=== PATIENT | female | born 1935 | race Two or more races ===

== ENCOUNTER 2017-10-13 07:06 | Day surgery (SDC) | payer MEDICARE, OTHER ==
--- NOTE | 2017-10-09 10:32 | Pre-Procedure Note/Attestation ---
Pre-Procedure Note/Attestation Complete Prior to Procedure Planned Procedure: right Procedure Narrative: 1. CATARACT EXTRACTION WITH PHACO AND PC IOL IMPLANTATION, RIGHT EYE. 2. LIMBAL RELAXING INCISION, RIGHT EYE. Indications for Procedure Pre-Operative Diagnosis: 1. 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 2.ASTIGMATISM , RIGHT EYE. Attestation I attest that I discussed the nature of the procedure; its benefits; risks and complications; and alternatives (and the risks and benefits of such alternatives ), prior to the procedure, with the patient (or the patient's legal patient admitting representative). I attest that, if there was a reasonable possibility of needing a blood transfusion, the patient (or the patient's legal patient admitting representative) was given the [place] Department [employer] standardized written summary, pursuant to the Zeeshan Liya Blood Safety Act ([place] Health and Safety Code # 1645, as amended). I attest that I re-evaluated the patient just prior to the surgery and that there has been no change in the patient's H&P, except as documented below: SHAW LEE Oct 09, 2017 10:32
[2017-10-13] VITALS (10 sets, daily range): BP systolic 126–155; BP diastolic 77–91
[~2017-10-13] VITALS: Ht 152.4 cm; Wt 79.8 kg
[~2017-10-13 07:06] MED LIST: acetaZOLAMIDE 125mg tab ORAL ONE
[2017-10-13] MEDS ORDERED: Vigamox Opth Soln 3ml ONE (07:12)
[2017-10-13] MEDS ORDERED: Phenylephrine 10% Opth Soln 5ml ONE (07:12)
[2017-10-13] MEDS ORDERED: Ketorolac Tromethamine Opth 5ml Soln ONE (07:12)
[2017-10-13] MEDS ORDERED: Tropicamide 1% Opth 15ml Soln ONE (07:13)
[2017-10-13] MEDS: Vigamox Opth Soln 3ml RIGHT EYE SCH ×3 (07:41→08:03)
[2017-10-13] MEDS: Phenylephrine 10% Opth Soln 5ml RIGHT EYE SCH ×3 (07:41→08:03)
[2017-10-13] MEDS: Tropicamide 1% Opth 15ml Soln RIGHT EYE SCH ×3 (07:41→08:03)
[2017-10-13] MEDS: Ketorolac Tromethamine Opth 5ml Soln RIGHT EYE SCH ×3 (07:41→08:03)
[2017-10-13] MEDS ORDERED: LR 1000ml ONE (08:00)
[2017-10-13] MEDS ORDERED: Sterile Water Irrig 1000ml IRRIG ONE (08:00)
[2017-10-13] MEDS ORDERED: Sodium Chloride 10ml vial INJ ONE ×2 (08:00)
[2017-10-13] MEDS ORDERED: LEVOTHYROXINE50 MCG ORAL (08:00)
[2017-10-13] MEDS ORDERED: Propofol 200mg/20ml IV ONE (08:00)
[2017-10-13] MEDS ORDERED: Midazolam 2mg/2ml Inj ONE (08:00)
[2017-10-13] MEDS ORDERED: fentaNYL 100 mcg/2 mL IV ONE (08:00)
[2017-10-13] MEDS ORDERED: DIOVAN80 MG ORAL (08:00)
[2017-10-13] MEDS ORDERED: AMLODIPINE BESYL5 MG ORAL (08:00)
[2017-10-13] MEDS ORDERED: NS Irrig 1000ml ONE (08:00)
[2017-10-13] MEDS ORDERED: Akten 3.5% 1ml Btl ONE (08:36)
[2017-10-13] MEDS ORDERED: Dexamethasone 4mg/ml vial ONE (08:37)
[2017-10-13] MEDS ORDERED: Lidocaine 1% MPF 10mg/ml 5ml ONE (08:37)
[2017-10-13] MEDS ORDERED: BSS 500ml btl ONE (08:37)
[2017-10-13] MEDS ORDERED: EPINEPHrine 1mg/1ml Amp ONE (08:37)
[2017-10-13] MEDS ORDERED: Sodium Hyaluronate 10 mg/ml 0.85ml ONE (08:38)
[2017-10-13] MEDS ORDERED: Povidone-Iodine 5% opth solution ONE (08:38)
[2017-10-13] MEDS ORDERED: BSS 15ml BTL ONE (08:38)
[2017-10-13] MEDS ORDERED: LR 1000ml 1,000 ML IVLG SCH (09:05)
--- NOTE | 2017-10-13 09:05 | Anethesia Preoperative Eval ---
Anesthesia Pre-op PMH/ROS General Date of Evaluation: Oct 13, 2017 Time of Evaluation: 08:25 Anesthesiologist: Natali ASA Score: ASA 3 Mallampati Score Class I : Soft palate, uvula, fauces, pillars visible Class II: Soft palate, uvula, fauces visible Class III: Soft palate, base of uvula visible Class IV: Only hard plate visible Mallampati Classification: Class II Surgeon: Kayla Diagnosis: R eye cataract Surgical Procedure: R eye cataract extraction Anesthesia History: none Family History: no anesthesia problems Allergies: Coded Allergies: LIDOCAINE (Verified Allergy, Unknown, 10/09/17) Past Medical History Cardiovascular: Reports: HTN, Denies: CAD, SC, valve dz, arrhythmia, other Pulmonary: Denies: asthma, COPD, GREGORIA, other Gastrointestinal/Genitourinary: Reports: GERD, Denies: CRI, ESRD, other Neurologic/Psychiatric: Reports: depression/anxiety, Denies: dementia, CVA, TIA, other Endocrine: Reports: hypothyroidism HEENT: Reports: cataract (L), cataract (R) - s/p Sx Hematology/Immune: Reports: anemia - mild, Denies: DVT, bleeding disorder, other Musculoskeletal/Integumentary: Reports: DJD, other - osteoporosis PMH Narrative: as above PSxH Narrative: Hysterectomy, cholecystectomy, knee scope, kyphoplasty Anesthesia Pre-op Phys. Exam Physician Exam Last Vital Signs Date Time Temp Pulse Resp B/P (MAP) Pulse Ox O2 Delivery O2 Flow Rate FiO2 10/13/17 08:00 97.7 83 20 151/78 97 Room Air 97.7 Constitutional: NAD Neurologic: CN 2-12 intact Cardiovascular: RRR, no M/R/G Respiratory: CTA Gastrointestinal: S/NT/ND Airway Exam Mallampati Score: Class II MO: limited Neck: stiff ROM: limited Teeth: missing Dentures: no upper, no lower Anesthesia Pre-op A/P Labs see chart Studies Pre-op Studies: EKG - NSR Risk Assessment & Plan Assessment: ASA 3 Plan: MAC Status Change Before Surgery: No Pre-Antibiotics Drug: none ANJANA FOUNTAIN M.D. Oct 13, 2017 09:05
[2017-10-13] MEDS ORDERED: DiphenhydrAMINE 50mg/ml Inj IVP PRN (09:15)
[2017-10-13] MEDS ORDERED: fentaNYL 100 mcg/2 mL IV PRN (09:15)
--- NOTE | 2017-10-13 09:36 | Discharge Summary ---
Discharge Summary Discharge Summary Discharge Summary DATE OF ADMISSION:10/13/2017 DATE OF DISCHARGE: 10/13/2017 REASON FOR HOSPITALIZATION: Cataract, right eye SURGERY PERFORMED: 1- Cataract extraction 2- LRI, right eye CONDITION IN THE HOSPITAL:The patient tolerated the surgery without complications. DISCHARGE CONDITION: The patient was stable at discharge. DISCHARGE MEDICATIONS: 1. Vigamox eye drops one drop q.i.d, OD 2. Prednisolone one drop q.i.d, OD 3. Prolensa once a day, right eye POSTOPERATIVE ORDERS: The patient has to rest at home. No bending, No lifting, No watching Television tonight. POSTOPERATIVE FOLLOW UP: The patient will be followed in my office tomorrow morning at 7 o'clock. SHAW LEE Oct 13, 2017 09:36
--- NOTE | 2017-10-13 09:40 | Brief Operative Note ---
Immediate Post Operative Note Operative Note Chief Complaint: Blirry vision difficulty driving and reading, right eye Pre-op Diagnosis: 1. 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 2.ASTIGMATISM , RIGHT EYE. Procedure: 1- Cataract extraction with phaco and PC IOL implantation, right eye 2- Limbal Rellaxing incision, right eye Post-op Diagnosis: same as pre-op Surgeon: Shaw Garza ND. Operations Lieutenant: None Additional Surgeons: None Anesthesiologist: Natali Mehta Anesthesia: MAC Specimen: none Complications: none Condition: stable Fluids: 50ml Estimated Blood Loss: none Drains: none Implant(s) used?: Yes - Monofocal PC IOL implanted inthe right eye without complicaSHAW Hamilton Oct 13, 2017 09:39
--- NOTE | 2017-10-13 10:06 | Immediate Post-Op Evaluation ---
Immediate Post-Op Evalulation Immediate Post-Op Evalulation Procedure: R eye cataract extraction with IOL Date of Evaluation: Oct 13, 2017 Time of Evaluation: 09:37 IV Fluids: 300 Blood Products: none Estimated Blood Loss: none Urinary Output: none Blood Pressure Systolic: 156 Blood Pressure Diastolic: 84 Pulse Rate: 67 Respiratory Rate: 20 O2 Sat by Pulse Oximetry: 99 Temperature (Fahrenheit): 97.6 Pain Score (1-10): 2 Nausea: No Vomiting: No Complications none Patient Status: awake, patent, none Hydration Status: adequate ANJANA FOUNTAIN M.D. Oct 13, 2017 10:06
--- NOTE | 2017-10-13 13:21 | 48 Hour Post Anesthesia Eval ---
Post Anesthesia Evaluation Procedure: R eye cataract extraction with IOL Date of Evaluation: Oct 13, 2017 Time of Evaluation: 13:20 Blood Pressure Systolic: 152 0: 83 Pulse Rate: 74 Respiratory Rate: 20 Temperature (Fahrenheit): 97.6 O2 Sat by Pulse Oximetry: 98 Airway: patent Nausea: No Vomiting: No Pain Intensity: 1 Hydration Status: adequate Cardiopulmonary Status: stable Mental Status/LOC: patient returned to baseline Follow-up Care/Observations: n/a Post-Anesthesia Complications: none Follow-up care needed: ready to discharge ANJANA FOUNTAIN M.D. Oct 13, 2017 13:21
--- NOTE | 2017-10-13 23:45 | Operative Note - Dictated ---
DATE OF OPERATION: 10/13/2017 FACILITY: [facility]. SURGEON: Elver Garza M.D. SPIRAL TUBE WINDER: None. ANESTHESIOLOGIST: Florentino Hurst M.D. ANESTHESIA: Monitored anesthesia care (MAC). PREOPERATIVE DIAGNOSIS: Cataract, right eye. POSTOPERATIVE DIAGNOSIS: Cataract, right eye. SURGERY PERFORMED: 1. Cataract extraction with phacoemulsification and posterior chamber intraocular lens implantation, right eye. 2. Limbal relaxing incision (LRI), right eye. INDICATIONS FOR SURGERY: The patient is an 82-year-old lady with history of hypertension, osteoarthritis, herniated disk disease, obesity, gastroesophageal reflux disease (GERD), and hypothyroidism. She is taking medications including simvastatin, Diovan, hydrochlorothiazide, losartan, levothyroxine, and Celebrex. She is not allergic to any medication and she is not a smoker. She is not a drinker. She has had cataract surgery in the left eye three weeks ago and she is happy with the result. Now, she is complaining of the blurry vision in the right eye. On examination of the right eye, the cornea is clear. Anterior chamber is clean and quiet, but is very shallow. Pupillary reflex is normal. There is no RAPD. There is 4+ nuclear sclerosis and 2+ cortical cataract. She improved her vision in the right eye. The cataract has to be removed and posterior chamber intraocular lens has to be implanted. INFORMED CONSENT: The nature of the surgery, risks, benefits, alternatives, and potential complications were explained all in detail to the patient in her language, through an tungsten tender. The potential complications including, but not limited to bleeding, infection, posterior capsular rupture, lens subluxation, flat anterior chamber, iris prolapse, uveitis, corneal edema, macular edema, endophthalmitis, retinal detachment, loss of vision, and even loss of the eye all were explained in detail to the patient in her language through an tungsten tender. The patient voiced understanding and accepted all the complications. The alternatives including accommodating lens, multifocal lens, toric lens, and conventional cataract surgery with limbal relaxing incision (LRI) for treatment of astigmatism were all explained in detail to the patient. The patient voiced understanding and accepted all the complications. The patient elected to have only conventional cataract surgery with limbal relaxing incision (LRI) in the right eye. Then, she signed a consent form, which is in the chart. DESCRIPTION OF SURGERY AND FINDINGS: Following that, the patient was taken to the operation room in a stable condition. Lidocaine gel Akten 3.5% were applied to the conjunctiva of the right eye. IV sedation was given by the anesthesiologist, Dr. Hurst. After adequate anesthesia and sedation had been achieved, the right eye was prepped and draped in sterile fashion for intraocular surgery. Following that, a speculum was placed in the right eye. Before the patient was taken to the operation room, the cornea was marked at 180 and 90 meridian. In the operation room with corneal marker and marking pen, the steep meridian was marked. Following that, using the rajat knife with 600 micron blade, two parallel incisions were placed on the steep meridian of the cornea to treat the astigmatism. Following that, using a Super Sharp knife, a clear corneal side port was created. A 1% lidocaine without preservative was (MPF) was injected into the anterior chamber. Following that, viscoelastic agent Healon was injected into the anterior chamber. Following that, using a 2.8 mm keratome, a clear corneal temporal keratotomy was performed. Following that, viscoelastic agent was injected into the anterior chamber again. Following that, anterior capsulotomy in the fashion of capsulorrhexis was performed under the viscoelastic agent beautifully. Following that, whole viscoelastic was removed from the anterior chamber. Following that, using balanced salt solution, hydrodissection and hydrodelineation was performed and the nucleus was freed. Following that, clear fresh viscoelastic agent was injected into the anterior chamber to protect the endothelium of the cornea. Following that, using the phacoemulsification machine in the fashion of horizontal chop, the nucleus was removed in toto. Following that, with irrigation aspiration unit, the cortical material was removed from the capsular bag and the capsular bag was polished. Following that, the capsular bag was filled with viscoelastic agent, Healon. Following that, a +24 diopter PCB00 foldable PCIOL was injected into the capsular bag. Using a Sinskey hook, the lens was manipulated within the proper position. Following that, the viscoelastic agent was removed from the anterior posterior part of the lens. The anterior chamber was filled with viscoelastic and the wound was hydrated with balanced salt solution. The wound was checked for leakage. There was no leakage. Vigamox eye drops were applied to the conjunctiva of the right eye. The patient tolerated the surgery without complications. At the end of the surgery, the eye was patched with a clear sterile fenestrated shield. Following that, the patient was transferred to the recovery room. In the recovery room, 125 mg Diamox was given by mouth stat. Postoperative orders and directions were given to the patient. The patient will be discharged home upon stabilization. The patient will be followed in my office tomorrow morning at 7 a.m. Elver Garza M.D. DR: Esme JOB#: [id number] CC:
== END 2017-10-13 10:35 | disposition home or self-care (01) ==
LOC: SUR 07:06
DX: H25.11 Age-related nuclear cataract, right eye (principal); H25.011 Cortical age-related cataract, right eye; I10 Essential (primary) hypertension; M19.90 Unspecified osteoarthritis, unspecified site; K21.9 Gastro-esophageal reflux disease without esophagitis; E03.9 Hypothyroidism, unspecified; H52.201 Unspecified astigmatism, right eye; Z90.49 Acquired absence of other specified parts of digestive tract; E66.9 Obesity, unspecified; Z68.34 Body mass index [BMI] 34.0-34.9, adult; Z88.8 Allergy status to other drugs, medicaments and biological substances; F32.9 Major depressive disorder, single episode, unspecified; F41.9 Anxiety disorder, unspecified; M81.0 Age-related osteoporosis without current pathological fracture; Z90.710 Acquired absence of both cervix and uterus
CPT/HCPCS: 65772; 66984; J0171; J1100; J2250; J2704; J3010; J7120; V2632; 94003; 94150